=== PATIENT | male | born 1965 | race Caucasian/White ===

== ENCOUNTER 2018-12-24 11:58 | Inpatient (IN) | payer SELFPAY ==
[~2018-12-24] VITALS: Ht 190.5 cm; Wt 70.8 kg
--- NOTE | 2018-12-24 12:18 | PHYS DOC ---
Adult General Chief Complaint Chief Complaint: OTHER COMPLAINTS HPI HPI 53-year-old male presents with a 2 day history of difficulty swallowing. He states he can't drink any water without vomiting it back up. He states he is having some difficulty tolerating his secretions. He has some epigastric discomfort. He states in the past she's been told he had an esophageal stricture.[] Review of Systems Review of Systems Constitutional: Denies fever or chills [] Eyes: Denies change in visual acuity, redness, or eye pain [] HENT: Denies nasal congestion or sore throat [] Respiratory: Denies cough or shortness of breath [] Cardiovascular: No additional information not addressed in HPI [] GI: Per history of present illness[] : Denies dysuria or hematuria [] Musculoskeletal: Denies back pain or joint pain [] Integument: Denies rash or skin lesions [] Neurologic: Denies headache, focal weakness or sensory changes [] Endocrine: Denies polyuria or polydipsia [] All other systems were reviewed and found to be within normal limits, except as documented in this note. Current Medications Current Medications Current Medications Medications (Trade) Dose Ordered Sig/Olimpia Start Time Stop Time Status Last Admin Dose Admin Barium Sulfate (Liquid E-Z Paque) 355 ml 1X ONCE 12/24/18 13:15 12/24/18 13:16 DC 12/24/18 13:15 355 ML Metoclopramide HCl (Reglan Vial) 10 mg 1X ONCE 12/24/18 12:45 12/24/18 12:46 DC 12/24/18 12:44 10 MG Sodium Chloride 1,000 ml @ 1,000 mls/hr 1X ONCE 12/24/18 12:45 12/24/18 13:44 12/24/18 12:44 1,000 MLS/HR Allergies Allergies Allergies Coded Allergies Type Severity Reaction Last Updated Verified No Known Drug Allergies 12/24/18 No Physical Exam Physical Exam Constitutional: Well developed, well nourished, no acute distress, non-toxic appearance. [] HENT: Normocephalic, atraumatic, bilateral external ears normal, oropharynx moist, no oral exudates, nose normal. [] Eyes: PERRLA, EOMI, conjunctiva normal, no discharge. [] Neck: Normal range of motion, no tenderness, supple, no stridor. [] Cardiovascular:Heart rate regular rhythm, no murmur [] Lungs & Thorax: Bilateral breath sounds clear to auscultation [] Abdomen: Bowel sounds normal, soft, no tenderness, no masses, no pulsatile masses. [] Skin: Warm, dry, no erythema, no rash. [] Back: No tenderness, no CVA tenderness. [] Extremities: No tenderness, no cyanosis, no clubbing, ROM intact, no edema. [] Neurologic: Alert and oriented X 3, normal motor function, normal sensory function, no focal deficits noted. [] Psychologic: Affect normal, judgement normal, mood normal. [] Current Patient Data Vital Signs Vital Signs Date Time Temp Pulse Resp B/P (MAP) Pulse Ox O2 Delivery O2 Flow Rate FiO2 12/24/18 12:05 98.9 90 18 134/99 (111) 99 Room Air 98.9 Lab Values Laboratory Tests Test 12/24/18 12:20 White Blood Count 14.0 x10^3/uL (4.0-11.0) H Red Blood Count 5.23 x10^6/uL (4.30-5.70) Hemoglobin 14.1 g/dL (13.0-17.5) Hematocrit 43.9 % (39.0-53.0) Mean Corpuscular Volume 84 fL (79-100) Mean Corpuscular Hemoglobin 27 pg (25-35) Mean Corpuscular Hemoglobin Concent 32 g/dL (31-37) Red Cell Distribution Width 23.0 % (11.5-14.5) H Platelet Count 491 x10^3/uL (140-400) H Neutrophils (%) (Auto) 81 % (31-73) H Lymphocytes (%) (Auto) 11 % (24-48) L Monocytes (%) (Auto) 6 % (0-9) Eosinophils (%) (Auto) 0 % (0-3) Basophils (%) (Auto) 1 % (0-3) Neutrophils # (Auto) 11.3 x10^3uL (1.8-7.7) H Lymphocytes # (Auto) 1.6 x10^3/uL (1.0-4.8) Monocytes # (Auto) 0.9 x10^3/uL (0.0-1.1) Eosinophils # (Auto) 0.0 x10^3/uL (0.0-0.7) Basophils # (Auto) 0.2 x10^3/uL (0.0-0.2) Platelet Estimate Increased (ADEQUATE) Anisocytosis Slight Sodium Level 140 mmol/L (136-145) Potassium Level 3.7 mmol/L (3.5-5.1) Chloride Level 99 mmol/L (98-107) Carbon Dioxide Level 25 mmol/L (21-32) Anion Gap 16 (6-14) H Blood Urea Nitrogen 17 mg/dL (8-26) Creatinine 1.2 mg/dL (0.7-1.3) Estimated GFR (Cockcroft-Gault) 62.9 BUN/Creatinine Ratio 14 (6-20) Glucose Level 134 mg/dL (70-99) H Calcium Level 10.5 mg/dL (8.5-10.1) H Total Bilirubin 0.8 mg/dL (0.2-1.0) Aspartate Amino Transferase (AST) 19 U/L (15-37) Alanine Aminotransferase (ALT) 19 U/L (16-63) Alkaline Phosphatase 131 U/L (46-116) H Total Protein 9.3 g/dL (6.4-8.2) H Albumin 4.3 g/dL (3.4-5.0) Albumin/Globulin Ratio 0.9 (1.0-1.7) L Lipase 141 U/L (73-393) Laboratory Tests 12/24/18 12:20 Laboratory Tests 12/24/18 12:20 EKG EKG [] Radiology/Procedures Radiology/Procedures [] Impressions: PROCEDURE: ESOPHAGRAM/BARIUM SWALLOW Esophagram, 12/24/2018: History: Esophageal stricture, obstruction The study was performed utilizing thin liquid barium. 2.8 minutes of fluoroscopy time was utilized. 13 static and dynamic fluoroscopic sequences were recorded. There is high grade obstruction to passage of the thin liquid barium through the mid thoracic esophagus at approximately the subcarinal level. The esophagus superior to this level is dilated. There is only slow intermittent extension of a small amount of the contrast through this stricture into the distal esophagus. The upper margin of the stricture is smooth. The inferior margin is not clearly delineated due to lack of distention of the distal esophagus. A small amount contrast does eventually dribble into the stomach. IMPRESSION: High grade mid thoracic esophageal stricture which could be inflammatory or malignant. Course & Med Decision Making Course & Med Decision Making Pertinent Labs and Imaging studies reviewed. (See chart for details) [ED course: 53-year-old presented with difficulty swallowing. He had a barium swallow which showed a high-grade mid thoracic esophageal stricture consistent with either inflammation or malignancy. I spoke with the hospitalist agreed to accept the patient for admission and also spoke with the sheet metal mechanic will see him during his visit in the hospital.] Dragon Disclaimer Dragon Disclaimer This electronic medical record was generated, in whole or in part, using a voice recognition dictation system. Departure Departure Impression: Primary Impression: Esophageal stricture Disposition: ADMITTED INPATIENT Admitting Physician: Trisha Simmons Condition: STABLE Referrals: NO PCP (PCP) ZELALEM MORTENSEN DO Dec 24, 2018 12:18
[2018-12-24 12:45] LABS: BASO # 0.2 x10^3/uL (0.0-0.2); BASO % 1 % (0-3); EOS % 0 % (0-3); HEMATOCRIT 43.9 % (39.0-53.0); HEMOGLOBIN 14.1 g/dL (13.0-17.5); LYMPH # 1.6 x10^3/uL (1.0-4.8); LYMPH % 11 % (24-48); MEAN CORPUSCULAR HEMOGLOBIN 27 pg (25-35); MEAN CORPUSCULAR HGB CONC 32 g/dL (31-37); MEAN CORPUSCULAR VOLUME 84 fL (79-100); MONO # 0.9 x10^3/uL (0.0-1.1); MONO % 6 % (0-9); NEUT # 11.3 x10^3uL (1.8-7.7); NEUT % 81 % (31-73); PLATELET COUNT 491 x10^3/uL (140-400); RED BLOOD COUNT 5.23 x10^6/uL (4.30-5.70)
[2018-12-24] MEDS ORDERED: IV NORMAL SALINE 1000ML BAG 1,000 ML IV ONE (12:45)
[2018-12-24] MEDS ORDERED: METOCLOPRAMIDE HCL 10 MG/2 ML VIAL. IV ONE (12:45)
[2018-12-24 12:53] LABS: CALCIUM 10.5 mg/dL (8.5-10.1); CREATININE 1.2 mg/dL (0.7-1.3); GFR 62.9; POTASSIUM 3.7 mmol/L (3.5-5.1)
[2018-12-24 12:59] LABS: ALBUMIN 4.3 g/dL (3.4-5.0); ALBUMIN/GLOBULIN RATIO 0.9 (1.0-1.7); TOTAL BILIRUBIN 0.8 mg/dL (0.2-1.0); TOTAL PROTEIN 9.3 g/dL (6.4-8.2)
[2018-12-24 13:02] LABS: ANISOCYTOSIS SLIGHT; PLT ESTIMATE INCREASED (ADEQUATE)
[2018-12-24] MEDS ORDERED: BARIUM SULFATE 60% 355 ML SUSP PO ONE (13:15)
--- NOTE | 2018-12-24 13:31 | RAD ---
Esophagram, 12/24/2018: History: Esophageal stricture, obstruction The study was performed utilizing thin liquid barium. 2.8 minutes of fluoroscopy time was utilized. 13 static and dynamic fluoroscopic sequences were recorded. There is high grade obstruction to passage of the thin liquid barium through the mid thoracic esophagus at approximately the subcarinal level. The esophagus superior to this level is dilated. There is only slow intermittent extension of a small amount of the contrast through this stricture into the distal esophagus. The upper margin of the stricture is smooth. The inferior margin is not clearly delineated due to lack of distention of the distal esophagus. A small amount contrast does eventually dribble into the stomach. IMPRESSION: High grade mid thoracic esophageal stricture which could be inflammatory or malignant.
[2018-12-24] MEDS ORDERED: ONDANSETRON PF 4 MG/2 ML VIAL. IV PRN (13:45)
[2018-12-24] MEDS: IV NORMAL SALINE 1000ML BAG 1,000 ML IV SCH ×2 (14:00→21:02)
--- NOTE | 2018-12-24 14:03 | PDOC1 ---
History and Physical Date of Admission Date of Admission DATE: 12/24/18 TIME: 13:59 Identification/Chief Complaint Chief Complaint Cannot swallow pills, liquids Source Source: Caregiver, Chart review, Patient History of Present Illness History of Present Illness 53 white male, history of esophageal stricture and dilation dictation twice a year since 2010, last one November at [facility]. Monday onset of dysphagia and odynophagia again even difficulty swallowing pills and liquids. Barium swallow shows high-grade obstruction mid esophageal level hence admitted Takes carafate, SSRI, gabapentin, PPI, zoloft, seroquel at home but cant swallow pills He does not know of any diagnosis of esophageal cancer or mass causing his recurrent problems. HE claims he was told its bec of scar tissue Past Medical History GI: GERD, Other (esophageal strictures since 2010) Psych: Anxiety, Depression Past Surgical History Past Surgical History: Other (esophageal dilatations at least twice a year since 2010) Social History Smoke: No ALCOHOL: other (quit, was heavy before) Drugs: None Current Problem List Problem List Problems Medical Problems: (1) Esophageal stricture Status: Acute Current Medications Current Medications Current Medications Metoclopramide HCl (Reglan Vial) 10 mg 1X ONCE IV Last administered on at 12:44; Start 12/24/18 at 12:45; Stop 12/24/18 at 12:46; Status DC Sodium Chloride 1,000 ml @ 1,000 mls/hr 1X ONCE IV Last administered on at 12:44; Start 12/24/18 at 12:45; Stop 12/24/18 at 13:44; Status DC Barium Sulfate (Liquid E-Z Paque) 355 ml 1X ONCE PO Last administered on at 13:15; Start 12/24/18 at 13:15; Stop 12/24/18 at 13:16; Status DC Ondansetron HCl (Zofran) 4 mg PRN Q8HRS PRN IV NAUSEA/VOMITING; Start 12/24/18 at 13:45; Stop 12/25/18 at 13:44 Sodium Chloride 1,000 ml @ 125 mls/hr Q8H IV ; Start 12/24/18 at 14:00; Stop at 13:59 Allergies Allergies: Coded Allergies: No Known Drug Allergies (Unverified , 12/24/18) ROS Review of System odynophagia and dysphagia, otherwise no weight loss, he feels hungry, [id number] point negative Physical Exam General: Alert, Oriented X3, Cooperative, No acute distress HEENT: Atraumatic, PERRLA, EOMI Lungs: Clear to auscultation, Normal air movement Heart: S1S2, RRR, no thrills, no rubs, no gallops, no murmurs Cardiovascular: S1, S2 Abdomen: Normal bowel sounds, Soft, No tenderness, No hepatosplenomegaly, No masses Male Genitals Exam: normal genitalia, normal prostate Rectal Exam: not examined PELVIC: Nml ext genitalia Extremities: No clubbing, No cyanosis, No edema, Normal pulses, No tenderness/ swelling Skin: No rashes, No breakdown, No significant lesion Neuro: Normal gait, Normal speech, Strength at 5/5 X4 ext, Normal tone, Sensation intact, Cranial nerves 3-12 NL, Reflexes 2+ Psych/Mental Status: Mental status NL, Mood NL Vitals Vitals Vital Signs Date Time Temp Pulse Resp B/P (MAP) Pulse Ox O2 Delivery O2 Flow Rate FiO2 12/24/18 12:05 98.9 90 18 134/99 (111) 99 Room Air 98.9 Labs Labs Laboratory Tests Test 12/24/18 12:20 White Blood Count 14.0 x10^3/uL (4.0-11.0) Red Blood Count 5.23 x10^6/uL (4.30-5.70) Hemoglobin 14.1 g/dL (13.0-17.5) Hematocrit 43.9 % (39.0-53.0) Mean Corpuscular Volume 84 fL (79-100) Mean Corpuscular Hemoglobin 27 pg (25-35) Mean Corpuscular Hemoglobin Concent 32 g/dL (31-37) Red Cell Distribution Width 23.0 % (11.5-14.5) Platelet Count 491 x10^3/uL (140-400) Neutrophils (%) (Auto) 81 % (31-73) Lymphocytes (%) (Auto) 11 % (24-48) Monocytes (%) (Auto) 6 % (0-9) Eosinophils (%) (Auto) 0 % (0-3) Basophils (%) (Auto) 1 % (0-3) Neutrophils # (Auto) 11.3 x10^3uL (1.8-7.7) Lymphocytes # (Auto) 1.6 x10^3/uL (1.0-4.8) Monocytes # (Auto) 0.9 x10^3/uL (0.0-1.1) Eosinophils # (Auto) 0.0 x10^3/uL (0.0-0.7) Basophils # (Auto) 0.2 x10^3/uL (0.0-0.2) Platelet Estimate Increased (ADEQUATE) Anisocytosis Slight Sodium Level 140 mmol/L (136-145) Potassium Level 3.7 mmol/L (3.5-5.1) Chloride Level 99 mmol/L (98-107) Carbon Dioxide Level 25 mmol/L (21-32) Anion Gap 16 (6-14) Blood Urea Nitrogen 17 mg/dL (8-26) Creatinine 1.2 mg/dL (0.7-1.3) Estimated GFR (Cockcroft-Gault) 62.9 BUN/Creatinine Ratio 14 (6-20) Glucose Level 134 mg/dL (70-99) Calcium Level 10.5 mg/dL (8.5-10.1) Total Bilirubin 0.8 mg/dL (0.2-1.0) Aspartate Amino Transf (AST/SGOT) 19 U/L (15-37) Alanine Aminotransferase (ALT/SGPT) 19 U/L (16-63) Alkaline Phosphatase 131 U/L (46-116) Total Protein 9.3 g/dL (6.4-8.2) Albumin 4.3 g/dL (3.4-5.0) Albumin/Globulin Ratio 0.9 (1.0-1.7) Lipase 141 U/L (73-393) Laboratory Tests Test 12/24/18 12:20 White Blood Count 14.0 x10^3/uL (4.0-11.0) Red Blood Count 5.23 x10^6/uL (4.30-5.70) Hemoglobin 14.1 g/dL (13.0-17.5) Hematocrit 43.9 % (39.0-53.0) Mean Corpuscular Volume 84 fL (79-100) Mean Corpuscular Hemoglobin 27 pg (25-35) Mean Corpuscular Hemoglobin Concent 32 g/dL (31-37) Red Cell Distribution Width 23.0 % (11.5-14.5) Platelet Count 491 x10^3/uL (140-400) Neutrophils (%) (Auto) 81 % (31-73) Lymphocytes (%) (Auto) 11 % (24-48) Monocytes (%) (Auto) 6 % (0-9) Eosinophils (%) (Auto) 0 % (0-3) Basophils (%) (Auto) 1 % (0-3) Neutrophils # (Auto) 11.3 x10^3uL (1.8-7.7) Lymphocytes # (Auto) 1.6 x10^3/uL (1.0-4.8) Monocytes # (Auto) 0.9 x10^3/uL (0.0-1.1) Eosinophils # (Auto) 0.0 x10^3/uL (0.0-0.7) Basophils # (Auto) 0.2 x10^3/uL (0.0-0.2) Platelet Estimate Increased (ADEQUATE) Anisocytosis Slight Sodium Level 140 mmol/L (136-145) Potassium Level 3.7 mmol/L (3.5-5.1) Chloride Level 99 mmol/L (98-107) Carbon Dioxide Level 25 mmol/L (21-32) Anion Gap 16 (6-14) Blood Urea Nitrogen 17 mg/dL (8-26) Creatinine 1.2 mg/dL (0.7-1.3) Estimated GFR (Cockcroft-Gault) 62.9 BUN/Creatinine Ratio 14 (6-20) Glucose Level 134 mg/dL (70-99) Calcium Level 10.5 mg/dL (8.5-10.1) Total Bilirubin 0.8 mg/dL (0.2-1.0) Aspartate Amino Transf (AST/SGOT) 19 U/L (15-37) Alanine Aminotransferase (ALT/SGPT) 19 U/L (16-63) Alkaline Phosphatase 131 U/L (46-116) Total Protein 9.3 g/dL (6.4-8.2) Albumin 4.3 g/dL (3.4-5.0) Albumin/Globulin Ratio 0.9 (1.0-1.7) Lipase 141 U/L (73-393) VTE Prophylaxis Ordered VTE Prophylaxis Devices: Yes VTE Pharmacological Prophylaxi: Yes Assessment/Plan Assessment/Plan High-grade mid-level esophageal stricture NO known malignancy causing recurrent strictures Depression on SSRI and antidepressants Plan: OBS nothing by mouth, IV fluid, PPI while nothing by mouth Cannot reconcile home meds are OTC is unable to swallow GI consult Seen at ER Full code Possible home after diltn by gI tmr CAROLINA CHUN MD Dec 24, 2018 14:03
[2018-12-24] MEDS ORDERED: PANTOPRAZOLE IV PUSH 40 MG VIAL. IVP SCH (14:30)
[2018-12-24 15:11] VITALS: BP 123/90
--- NOTE | 2018-12-24 15:15 | PDOC2 ---
GI CONSULT Reason For Consult: Esophageal stricture HPI: HPI: 53 y/o male admitted through the ER, seen in his room w/ Dr. Romero this afternoon. H/o dysphagia requiring esophageal dilations - last done about 1.5 months ago at [facility]. 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 On this occasion, bothersome dysphagia and vomiting since Monday (12/22/18). Abd is sore from retching. Unable to tolerate much PO - prior to this episode diet consisted mainly of Ensure and blended foods. Has lost 10 pounds in the past couple months. Barium swallow in the ER showed high grade mid thoracic esophageal stricture. No hematemesis, diarrhea, constipation, hematochezia, or melena. Last colonoscopy sometime last year - reportedly normal though it has been recommended that he have colonoscopies every three years due to family history. PMH: PMH: A Fib (says "once in the hospital), esophageal stricture/dilations, anxiety/ depression FH: Family History: Cancer (father - colon cancer, diagnosed in his 50s; mother and sister also had cancer) Social History: Smoke: Quit ALCOHOL: other (heavy in the past - up to 1/5 vodka daily, none since last year ) Drugs: Marijuana (long ago) ROS: GEN: Denies fevers, chills, sweats HEENT: Denies blurred vision, sore throat CV: Denies chest pain RESP: Denies shortness of air, cough GI: Per HPI : Denies hematuria, dysuria ENDO: +weight loss NEURO: Denies confusion, dizziness MSK: Denies weakness, joint pain/swelling SKIN: Denies jaundice, pruritus Vitals: Vitals: Vital Signs Date Time Temp Pulse Resp B/P (MAP) Pulse Ox O2 Delivery O2 Flow Rate FiO2 12/24/18 14:30 88 19 128/97 (107) 97 Room Air 12/24/18 12:05 98.9 98.9 Labs: Labs: Laboratory Tests Test 12/24/18 12:20 White Blood Count 14.0 x10^3/uL (4.0-11.0) Red Blood Count 5.23 x10^6/uL (4.30-5.70) Hemoglobin 14.1 g/dL (13.0-17.5) Hematocrit 43.9 % (39.0-53.0) Mean Corpuscular Volume 84 fL (79-100) Mean Corpuscular Hemoglobin 27 pg (25-35) Mean Corpuscular Hemoglobin Concent 32 g/dL (31-37) Red Cell Distribution Width 23.0 % (11.5-14.5) Platelet Count 491 x10^3/uL (140-400) Neutrophils (%) (Auto) 81 % (31-73) Lymphocytes (%) (Auto) 11 % (24-48) Monocytes (%) (Auto) 6 % (0-9) Eosinophils (%) (Auto) 0 % (0-3) Basophils (%) (Auto) 1 % (0-3) Neutrophils # (Auto) 11.3 x10^3uL (1.8-7.7) Lymphocytes # (Auto) 1.6 x10^3/uL (1.0-4.8) Monocytes # (Auto) 0.9 x10^3/uL (0.0-1.1) Eosinophils # (Auto) 0.0 x10^3/uL (0.0-0.7) Basophils # (Auto) 0.2 x10^3/uL (0.0-0.2) Platelet Estimate Increased (ADEQUATE) Anisocytosis Slight Sodium Level 140 mmol/L (136-145) Potassium Level 3.7 mmol/L (3.5-5.1) Chloride Level 99 mmol/L (98-107) Carbon Dioxide Level 25 mmol/L (21-32) Anion Gap 16 (6-14) Blood Urea Nitrogen 17 mg/dL (8-26) Creatinine 1.2 mg/dL (0.7-1.3) Estimated GFR (Cockcroft-Gault) 62.9 BUN/Creatinine Ratio 14 (6-20) Glucose Level 134 mg/dL (70-99) Calcium Level 10.5 mg/dL (8.5-10.1) Total Bilirubin 0.8 mg/dL (0.2-1.0) Aspartate Amino Transf (AST/SGOT) 19 U/L (15-37) Alanine Aminotransferase (ALT/SGPT) 19 U/L (16-63) Alkaline Phosphatase 131 U/L (46-116) Total Protein 9.3 g/dL (6.4-8.2) Albumin 4.3 g/dL (3.4-5.0) Albumin/Globulin Ratio 0.9 (1.0-1.7) Lipase 141 U/L (73-393) Allergies: Coded Allergies: No Known Drug Allergies (Unverified , 12/24/18) Medications: Current Medications Medications (Trade) Dose Ordered Sig/Olimpia Route PRN Reason Start Time Stop Time Status Last Admin Dose Admin Metoclopramide HCl (Reglan Vial) 10 mg 1X ONCE IV 12/24/18 12:45 12/24/18 12:46 DC 12/24/18 12:44 Sodium Chloride 1,000 ml @ 1,000 mls/hr 1X ONCE IV 12/24/18 12:45 12/24/18 13:44 DC 12/24/18 12:44 Barium Sulfate (Liquid E-Z Paque) 355 ml 1X ONCE PO 12/24/18 13:15 12/24/18 13:16 DC 12/24/18 13:15 Imaging: Imaging: Barium swallow IMPRESSION: High grade mid thoracic esophageal stricture which could be inflammatory or malignant. PE: GEN: NAD HEENT: Atraumatic, PERRL LUNGS: CTAB HEART: RRR ABD: NABS, S/ND/NT EXTREMITY: No edema SKIN: No rashes, no jaundice NEURO/PSYCH: A & O 3 A/P: A/P: Esophageal stricture, dysphagia, weight loss H/o GERD and Morales's - on PPI and Carafate CRC screen, FH CRC - UTD H/o tobacco and alcohol abuse - quit -- Agree w/ IV PPI - will increase to BID. Will ask for records from [facility] re: last EGD/dilation. Plan for EGD and possible dilation w/ Dr. Romero tomorrow morning. LOUISE BERNARD Dec 24, 2018 15:15
[2018-12-24] MEDS ORDERED: QUEtiapine 25 MG TABLET. PO PRN (15:45)
[2018-12-24] MEDS ORDERED: ACETAMINOPHEN 325 MG TABLET. PO PRN (15:45)
[2018-12-24] MEDS: ONDANSETRON PF 4 MG/2 ML VIAL. IV PRN (16:07)
[2018-12-24] MEDS: MORPHINE SULFATE 2 MG/ML VIAL. IV PRN ×3 (16:10→21:00)
[2018-12-24] MEDS ORDERED: PANTOPRAZOLE 40 MG TABLET.DR. PO SCH (16:30)
[2018-12-24] MEDS: SERTRALINE 50 MG TABLET. PO SCH (16:30)
[2018-12-24] MEDS: PANTOPRAZOLE IV PUSH 40 MG VIAL. IVP SCH (17:44)
[2018-12-24 19:48] VITALS: BP 128/82
[2018-12-24] MEDS: GABAPENTIN 100 MG CAPSULE. PO SCH (21:05)
[2018-12-24] MEDS: SUCRALFATE 1 GM TABLET. PO SCH (21:05)
[2018-12-24] MEDS: QUEtiapine 100 MG TABLET. PO SCH (21:05)
[2018-12-24 22:47] VITALS: BP 122/75
[2018-12-25 02:43] VITALS: BP 109/79
[2018-12-25] MEDS: IV NORMAL SALINE 1000ML BAG 1,000 ML IV SCH (06:16)
[2018-12-25] MEDS: ONDANSETRON PF 4 MG/2 ML VIAL. IV PRN ×2 (06:17→15:07)
[2018-12-25] MEDS: MORPHINE SULFATE 2 MG/ML VIAL. IV PRN ×5 (06:18→21:43)
[2018-12-25 07:09] VITALS: BP 125/76
[2018-12-25] MEDS: SUCRALFATE 1 GM TABLET. PO SCH ×4 (07:30→19:39)
[2018-12-25] MEDS: IV RINGERS,LACTATED 1000ML 1,000 ML IV SCH ×2 (07:36→15:36)
[2018-12-25] MEDS ORDERED: fentaNYL PF VIAL 100 MCG/2 ML VIAL IV PRN ×2 (07:45)
[2018-12-25] MEDS ORDERED: MIDAZOLAM HCL/PF 2 MG/2 ML VIAL. IV PRN (07:45)
[2018-12-25] MEDS ORDERED: LIDOCAINE 1% PF 2 ML VIAL. ID PRN (07:45)
[2018-12-25] MEDS: PANTOPRAZOLE IV PUSH 40 MG VIAL. IVP SCH ×2 (07:55→16:12)
--- NOTE | 2018-12-25 08:42 | NUR ---
SW following pt for anticipated dc needs. Chart reviewed. Pt lives at home alone. Dc order placed on chart for home with self care if pt tolerates diet.
[2018-12-25] MEDS: SERTRALINE 50 MG TABLET. PO SCH (09:00)
[2018-12-25] MEDS: GABAPENTIN 100 MG CAPSULE. PO SCH ×3 (09:00→19:39)
--- NOTE | 2018-12-25 09:15 | PDOC3 ---
Discharge Summary Visit Information Date of Admission: Dec 24, 2018 Date of Discharge: Dec 25, 2018 Admitting Diagnosis Comment: High-grade mid-level esophageal stricture NO known malignancy causing recurrent strictures RECurrent benign esophageal stricture Depression on SSRI and antidepressants Final Diagnosis Problems Medical Problems: (1) Esophageal stricture Status: Acute Brief Hospital Course Allergies Allergies Coded Allergies Type Severity Reaction Last Updated Verified No Known Drug Allergies 12/24/18 No Vital Signs Vital Signs Date Time Temp Pulse Resp B/P (MAP) Pulse Ox O2 Delivery O2 Flow Rate FiO2 12/25/18 08:00 Room Air 12/25/18 07:09 98.0 75 17 125/76 (92) 96 98.0 Lab Results Laboratory Tests Test 12/24/18 12:20 White Blood Count 14.0 x10^3/uL (4.0-11.0) Red Blood Count 5.23 x10^6/uL (4.30-5.70) Hemoglobin 14.1 g/dL (13.0-17.5) Hematocrit 43.9 % (39.0-53.0) Mean Corpuscular Volume 84 fL (79-100) Mean Corpuscular Hemoglobin 27 pg (25-35) Mean Corpuscular Hemoglobin Concent 32 g/dL (31-37) Red Cell Distribution Width 23.0 % (11.5-14.5) Platelet Count 491 x10^3/uL (140-400) Neutrophils (%) (Auto) 81 % (31-73) Lymphocytes (%) (Auto) 11 % (24-48) Monocytes (%) (Auto) 6 % (0-9) Eosinophils (%) (Auto) 0 % (0-3) Basophils (%) (Auto) 1 % (0-3) Neutrophils # (Auto) 11.3 x10^3uL (1.8-7.7) Lymphocytes # (Auto) 1.6 x10^3/uL (1.0-4.8) Monocytes # (Auto) 0.9 x10^3/uL (0.0-1.1) Eosinophils # (Auto) 0.0 x10^3/uL (0.0-0.7) Basophils # (Auto) 0.2 x10^3/uL (0.0-0.2) Platelet Estimate Increased (ADEQUATE) Anisocytosis Slight Sodium Level 140 mmol/L (136-145) Potassium Level 3.7 mmol/L (3.5-5.1) Chloride Level 99 mmol/L (98-107) Carbon Dioxide Level 25 mmol/L (21-32) Anion Gap 16 (6-14) Blood Urea Nitrogen 17 mg/dL (8-26) Creatinine 1.2 mg/dL (0.7-1.3) Estimated GFR (Cockcroft-Gault) 62.9 BUN/Creatinine Ratio 14 (6-20) Glucose Level 134 mg/dL (70-99) Calcium Level 10.5 mg/dL (8.5-10.1) Total Bilirubin 0.8 mg/dL (0.2-1.0) Aspartate Amino Transf (AST/SGOT) 19 U/L (15-37) Alanine Aminotransferase (ALT/SGPT) 19 U/L (16-63) Alkaline Phosphatase 131 U/L (46-116) Total Protein 9.3 g/dL (6.4-8.2) Albumin 4.3 g/dL (3.4-5.0) Albumin/Globulin Ratio 0.9 (1.0-1.7) Lipase 141 U/L (73-393) Laboratory Tests Test 12/24/18 12:20 White Blood Count 14.0 x10^3/uL (4.0-11.0) Red Blood Count 5.23 x10^6/uL (4.30-5.70) Hemoglobin 14.1 g/dL (13.0-17.5) Hematocrit 43.9 % (39.0-53.0) Mean Corpuscular Volume 84 fL (79-100) Mean Corpuscular Hemoglobin 27 pg (25-35) Mean Corpuscular Hemoglobin Concent 32 g/dL (31-37) Red Cell Distribution Width 23.0 % (11.5-14.5) Platelet Count 491 x10^3/uL (140-400) Neutrophils (%) (Auto) 81 % (31-73) Lymphocytes (%) (Auto) 11 % (24-48) Monocytes (%) (Auto) 6 % (0-9) Eosinophils (%) (Auto) 0 % (0-3) Basophils (%) (Auto) 1 % (0-3) Neutrophils # (Auto) 11.3 x10^3uL (1.8-7.7) Lymphocytes # (Auto) 1.6 x10^3/uL (1.0-4.8) Monocytes # (Auto) 0.9 x10^3/uL (0.0-1.1) Eosinophils # (Auto) 0.0 x10^3/uL (0.0-0.7) Basophils # (Auto) 0.2 x10^3/uL (0.0-0.2) Platelet Estimate Increased (ADEQUATE) Anisocytosis Slight Sodium Level 140 mmol/L (136-145) Potassium Level 3.7 mmol/L (3.5-5.1) Chloride Level 99 mmol/L (98-107) Carbon Dioxide Level 25 mmol/L (21-32) Anion Gap 16 (6-14) Blood Urea Nitrogen 17 mg/dL (8-26) Creatinine 1.2 mg/dL (0.7-1.3) Estimated GFR (Cockcroft-Gault) 62.9 BUN/Creatinine Ratio 14 (6-20) Glucose Level 134 mg/dL (70-99) Calcium Level 10.5 mg/dL (8.5-10.1) Total Bilirubin 0.8 mg/dL (0.2-1.0) Aspartate Amino Transf (AST/SGOT) 19 U/L (15-37) Alanine Aminotransferase (ALT/SGPT) 19 U/L (16-63) Alkaline Phosphatase 131 U/L (46-116) Total Protein 9.3 g/dL (6.4-8.2) Albumin 4.3 g/dL (3.4-5.0) Albumin/Globulin Ratio 0.9 (1.0-1.7) Lipase 141 U/L (73-393) Brief Hospital Course Mr. Diaz is a 53 old white male with history of benign esophageal stricture since 2010 and has had multiple dilatations about 2 in a year. Comes in because of mid level high-grade stricture. Plan for EGD later. If tolerates diet after EGD can go home later Consults performed GI Procedure is performed EGD with dilatation 12/25/18 Discharge Information Condition at Discharge: Improved, Stable Disposition/Orders: D/C to Home CAROLINA CHUN MD Dec 25, 2018 09:15
[2018-12-25] MEDS ORDERED: PROPOFOL 40 ML IV ONE (09:52)
[2018-12-25] MEDS ORDERED: LIDOCAINE 2% PF 5 ML VIAL. ONE (09:52)
--- NOTE | 2018-12-25 14:11 | NUR ---
Patient underwent EGD this morning and was back at the unit at 1150. Patient was put on clear liquids. He'll be discharged once he tolerates the diet.
[2018-12-25 14:31] VITALS: BP 130/78
--- NOTE | 2018-12-25 16:22 | NUR ---
Patient was unable to tolerate clear liquids, vomited about 30 mL of ingested fluids. Paged GI service at 1530 and updated of the patient's condition. This nurse also spoke with Dr. Simmons at 1600 about patient's status and discharge plan, was instructed to cancel discharge and continue IV fluids. Patient may go home tomorrow and ff up at for planned stent placement for the esophageal stricture.
--- NOTE | 2018-12-25 16:27 | NUR ---
Spoke with Grace Britton of GI service at 1625, planning to coordinate with the endoscopist at for patient to be evaluated as outpx upon discharge from [facility]. Nurse to continue to follow.
[2018-12-25] MEDS: QUEtiapine 100 MG TABLET. PO SCH (19:39)
[2018-12-25 19:52] VITALS: BP 125/75
[2018-12-25 23:39] VITALS: BP 128/73
[2018-12-26 03:32] VITALS: BP 123/71
[2018-12-26] MEDS: MORPHINE SULFATE 2 MG/ML VIAL. IV PRN ×6 (04:19→22:29)
[2018-12-26 07:00] VITALS: BP 125/74
[2018-12-26] MEDS: SUCRALFATE 1 GM TABLET. PO SCH ×3 (07:30→16:30)
[2018-12-26] MEDS: ONDANSETRON PF 4 MG/2 ML VIAL. IV PRN ×2 (08:31→19:12)
[2018-12-26] MEDS: PANTOPRAZOLE IV PUSH 40 MG VIAL. IVP SCH ×2 (08:33→16:27)
[2018-12-26] MEDS: IV NORMAL SALINE 1000ML BAG 1,000 ML IV SCH ×2 (08:33→16:26)
[2018-12-26] MEDS: SERTRALINE 50 MG TABLET. PO SCH (09:00)
[2018-12-26] MEDS: GABAPENTIN 100 MG CAPSULE. PO SCH ×2 (09:00→14:00)
--- NOTE | 2018-12-26 09:36 | PDOC ---
Subjective: Subjective: Unable to swallow clear liquids. Objective: Vital Signs: Vital Signs Date Time Temp Pulse Resp B/P (MAP) Pulse Ox O2 Delivery O2 Flow Rate FiO2 12/26/18 08:32 19 100 Room Air 12/26/18 07:00 98.0 71 125/74 (91) 98.0 12/25/18 10:23 2 Imaging: EGD 12/25 one severe high grade stenosis 30cm from incisors (3-4mm inner diameter) - not traversed esophagus proximal to stenotic area was dilated (and biopsied) ectopic gastric mucosa in upper this of the esophagus (biopsied) *Dr. Romero d/w Dr. Madison yesterday re: possible esophageal stent placement PE: GEN: NAD LUNGS: CTAB HEART: RRR ABD: S/ND/NT NEURO/PSYCH: A & O 3 A/P: Esophageal stenosis -- Continue IVF. Our office is working to coordinate appt w/ Dr. Madison - will update with any new information - ?could possibly discharge from here and go directly to [facility] Dec 26, 2018 09:36
--- NOTE | 2018-12-26 10:54 | PDOC ---
PROGRESS NOTES Chief Complaint Chief Complaint High-grade mid-level esophageal stricture failed trial of esophageal dilation dictation 12/25/18 NO known malignancy causing recurrent strictures RECurrent benign esophageal stricture Depression on SSRI and antidepressants History of Present Illness History of Present Illness GI was unfortunately unsuccessful in dilating Mr. chambers: We are [facility] to [facility] JORDAN (might need stent?) I have talked to triage nurse and she will get back to me Pt is aware of my plan and is agreeable to transfer He cannot swallow liquids, pills Vitals Vitals Vital Signs Date Time Temp Pulse Resp B/P (MAP) Pulse Ox O2 Delivery O2 Flow Rate FiO2 12/26/18 08:32 19 100 Room Air 12/26/18 07:00 98.0 71 125/74 (91) 98.0 12/25/18 10:23 2 Physical Exam General: Alert, Oriented X3, Cooperative, No acute distress Heart: Regular rate Lungs: Clear Abdomen: Normal bowel sounds, Soft, No tenderness, No hepatosplenomegaly, No masses Extremities: No clubbing, No cyanosis, No edema, Normal pulses, No tenderness/ swelling Skin: No rashes, No breakdown, No significant lesion Review of Systems Review of Systems dysphagia and odynophagia, the rest of ROS 14 point negative Assessment and Plan Assessmemt and Plan Problems Medical Problems: (1) Esophageal stricture Status: Acute Comment Review of Relevant I have reviewed the following items rell (where applicable) has been applied. Labs Laboratory Tests Test 12/24/18 12:20 White Blood Count 14.0 x10^3/uL (4.0-11.0) Red Blood Count 5.23 x10^6/uL (4.30-5.70) Hemoglobin 14.1 g/dL (13.0-17.5) Hematocrit 43.9 % (39.0-53.0) Mean Corpuscular Volume 84 fL (79-100) Mean Corpuscular Hemoglobin 27 pg (25-35) Mean Corpuscular Hemoglobin Concent 32 g/dL (31-37) Red Cell Distribution Width 23.0 % (11.5-14.5) Platelet Count 491 x10^3/uL (140-400) Neutrophils (%) (Auto) 81 % (31-73) Lymphocytes (%) (Auto) 11 % (24-48) Monocytes (%) (Auto) 6 % (0-9) Eosinophils (%) (Auto) 0 % (0-3) Basophils (%) (Auto) 1 % (0-3) Neutrophils # (Auto) 11.3 x10^3uL (1.8-7.7) Lymphocytes # (Auto) 1.6 x10^3/uL (1.0-4.8) Monocytes # (Auto) 0.9 x10^3/uL (0.0-1.1) Eosinophils # (Auto) 0.0 x10^3/uL (0.0-0.7) Basophils # (Auto) 0.2 x10^3/uL (0.0-0.2) Platelet Estimate Increased (ADEQUATE) Anisocytosis Slight Sodium Level 140 mmol/L (136-145) Potassium Level 3.7 mmol/L (3.5-5.1) Chloride Level 99 mmol/L (98-107) Carbon Dioxide Level 25 mmol/L (21-32) Anion Gap 16 (6-14) Blood Urea Nitrogen 17 mg/dL (8-26) Creatinine 1.2 mg/dL (0.7-1.3) Estimated GFR (Cockcroft-Gault) 62.9 BUN/Creatinine Ratio 14 (6-20) Glucose Level 134 mg/dL (70-99) Calcium Level 10.5 mg/dL (8.5-10.1) Total Bilirubin 0.8 mg/dL (0.2-1.0) Aspartate Amino Transf (AST/SGOT) 19 U/L (15-37) Alanine Aminotransferase (ALT/SGPT) 19 U/L (16-63) Alkaline Phosphatase 131 U/L (46-116) Total Protein 9.3 g/dL (6.4-8.2) Albumin 4.3 g/dL (3.4-5.0) Albumin/Globulin Ratio 0.9 (1.0-1.7) Lipase 141 U/L (73-393) Medications Current Medications Metoclopramide HCl (Reglan Vial) 10 mg 1X ONCE IV Last administered on at 12:44; Start 12/24/18 at 12:45; Stop 12/24/18 at 12:46; Status DC Sodium Chloride 1,000 ml @ 1,000 mls/hr 1X ONCE IV Last administered on at 12:44; Start 12/24/18 at 12:45; Stop 12/24/18 at 13:44; Status DC Barium Sulfate (Liquid E-Z Paque) 355 ml 1X ONCE PO Last administered on at 13:15; Start 12/24/18 at 13:15; Stop 12/24/18 at 13:16; Status DC Ondansetron HCl (Zofran) 4 mg PRN Q8HRS PRN IV NAUSEA/VOMITING; Start 12/24/18 at 13:45; Stop 12/24/18 at 13:59; Status DC Sodium Chloride 1,000 ml @ 125 mls/hr Q8H IV Last administered on 12/25/18at 06 :16; Start 12/24/18 at 14:00; Stop 12/25/18 at 13:59; Status DC Ondansetron HCl (Zofran) 4 mg PRN Q6HRS PRN IV NAUSEA/VOMITING Last administered on 12/26/18at 08:31; Start 12/24/18 at 14:00 Morphine Sulfate (Morphine Sulfate) 2 mg PRN Q2HR PRN IV PAIN Last administered on 12/26/18at 08:32; Start 12/24/18 at 14:00 Pantoprazole Sodium (PROTONIX VIAL for IV PUSH) 40 mg DAILYAC IVP ; Start at 14:30; Stop 12/24/18 at 15:15; Status DC Pantoprazole Sodium (PROTONIX VIAL for IV PUSH) 40 mg BIDAC IVP Last administered on 12/26/18at 08:33; Start 12/24/18 at 16:30 Sertraline HCl (Zoloft) 150 mg DAILY PO ; Start 12/24/18 at 16:30 Sucralfate (Carafate) 1 gm QIDACHS PO ; Start 12/24/18 at 21:00 Pantoprazole Sodium (Protonix) 40 mg BIDAC PO ; Start 12/24/18 at 16:30; Status UNV Gabapentin (Neurontin) 600 mg TID PO ; Start 12/24/18 at 21:00 Quetiapine Fumarate (SEROquel) 150 mg HS PO ; Start 12/24/18 at 21:00 Quetiapine Fumarate (SEROquel) 25 mg PRN DAILY PRN PO ANXIETY / AGITATION; Start 12/24/18 at 15:45 Acetaminophen (Tylenol) 650 mg PRN Q6HRS PRN PO PAIN; Start 12/24/18 at 15:45 Midazolam HCl (Versed) 2 mg PRN 1X PRN IV PRIOR TO PROCEDURE; Start 12/25/18 at 07:45; Stop 12/26/18 at 07:44; Status DC Fentanyl Citrate (Fentanyl 2ml Vial) 25 mcg PRN Q5MIN PRN IV X 2 DOSES FOR PAIN ; Start 12/25/18 at 07:45; Stop 12/26/18 at 07:44; Status DC Fentanyl Citrate (Fentanyl 2ml Vial) 50 mcg PRN Q5MIN PRN IV X 2 DOSES FOR PAIN ; Start 12/25/18 at 07:45; Stop 12/26/18 at 07:44; Status DC Ringer's Solution 1,000 ml @ 125 mls/hr Q8H IV ; Start 12/25/18 at 07:36; Stop 12/25/18 at 19:35; Status DC Lidocaine HCl (Xylocaine-Mpf 1% 2ml Vial) 2 ml 1X PRN PRN ID IV START; Start at 07:45; Stop 12/26/18 at 07:44; Status DC Propofol 40 ml @ As Directed STK-MED ONCE IV ; Start 12/25/18 at 09:52; Stop at 09:53; Status DC Lidocaine HCl (Lidocaine Pf 2% Vial) 5 ml STK-MED ONCE .ROUTE ; Start 12/25/18 at 09:52; Stop 12/25/18 at 09:53; Status DC Sodium Chloride 1,000 ml @ 125 mls/hr Q8H IV Last administered on 12/26/18at 08 :33; Start 12/26/18 at 07:15 Vitals/I & O Vital Sign - Last 24 Hours 12/25/18 12/25/18 12/25/18 12/25/18 10:52 11:58 14:31 15:09 Temp 98.1 98.1 Pulse 91 85 Resp 18 19 16 18 B/P (MAP) 131/80 130/78 (95) Pulse Ox 98 98 100 100 O2 Delivery Room Air Room Air Room Air Room Air 12/25/18 12/25/18 12/25/18 12/25/18 18:18 18:50 19:52 20:00 Temp 98.0 98.0 Pulse 66 Resp B/P (MAP) 125/75 (92) Pulse Ox 100 100 98 O2 Delivery Room Air Room Air Room Air Room Air 12/25/18 12/26/18 12/26/18 12/26/18 23:39 03:32 07:00 08:00 Temp 97.9 98.1 98.0 97.9 98.1 98.0 Pulse 72 64 71 Resp B/P (MAP) 128/73 (91) 123/71 (88) 125/74 (91) Pulse Ox 96 97 100 O2 Delivery Room Air Room Air Room Air Room Air 12/26/18 08:32 Resp 19 Pulse Ox 100 O2 Delivery Room Air Intake and Output 12/25/18 12/25/18 12/26/18 15:00 23:00 07:00 Intake Total 1000 ml 440 ml 50 ml Output Total 200 ml 30 ml 900 ml Balance 800 ml 410 ml -850 ml CAROLINA CHUN MD Dec 26, 2018 10:54
--- NOTE | 2018-12-26 11:18 | NUR ---
PARIS following pt. PARIS notified by Physician a [facility] transfer request has been made. PARIS spoke with manager physical at as well and faxed clinicals. Acceptance and admission pending. Will continue to follow.
[2018-12-26 11:41] LABS: HEMATOCRIT 35.9 % (39.0-53.0); HEMOGLOBIN 11.9 g/dL (13.0-17.5); RED BLOOD COUNT 4.25 x10^6/uL (4.30-5.70); RED CELL DISTRIBUTION WIDTH 21.9 % (11.5-14.5); WHITE BLOOD COUNT 5.9 x10^3/uL (4.0-11.0)
[2018-12-26 12:11] LABS: CALCIUM 8.7 mg/dL (8.5-10.1); CREATININE 0.7 mg/dL (0.7-1.3); GFR 117.1; POTASSIUM 3.6 mmol/L (3.5-5.1)
--- NOTE | 2018-12-26 14:08 | NUR ---
PARIS following pt. PARIS notified by Sarah, it application architect at that pt needs to speak with financial counselor regarding payment plan before they accept. She also reported 's GI team currently are not taking consults and Internal Medicine is at capacity. PARIS assisted pt in calling a healthcare financial analyst and they completed a financial screen. Pt also reports he has filed Medicaid and disability few weeks ago with [employer]. Spoke with Sarha again and she reported she will reach out to financial counselors to see if decisions have been made yet and notify SW. PARIS will continue to follow.
[2018-12-26 15:00] VITALS: BP 135/76
--- NOTE | 2018-12-26 15:52 | NUR ---
PARIS following pt. PARIS received a phone call from Sarah, maintenance painter at who reported she is notified by financial counselor that pt will need to make a $200,000 down payment before they accept. She is also reported they are not accepting pt as it is not a medical emergency. PARIS discussed that Dr. Romero has spoken with Dr. Licona who is willing to accept pt but Sarah reported 'Dr. Licona is a search engine optimization consultant doctor and is not able to accept pt'. She reported 'he is able to say he can do procedure but can not admit pt'. PARIS notified Sarah pt is not able to make that kind of payment. At this time, is declining to accept pt stating clinicals provided do not show a medical emergency and also due to financial reasons. Physician notified.
--- NOTE | 2018-12-26 15:57 | NUR ---
Patient had 1 episode of vomiting this morning. Patient unable tolerate liquids. He was placed on NPO. We'll continue to monitor patient.
--- NOTE | 2018-12-26 17:09 | PATHOLOGY ---
[facility] Accession Number: [id number] . 01 Material submitted: . PART A: HIGH GRADE STENOSIS BIOPSY ESOPHAGEAL PART B: ESOPHAGUS BIOPSY - SALMON COLORED MUCOSA . 01 Clinical history: . Esophageal stricture . 02 Diagnosis: A. Esophageal biopsy, high grade stenosis: - Segments of hyperplastic squamous esophageal mucosa, consistent with reflux esophagitis. . B. 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 . ([facility] 12/26/2018) [facility]/12/26/2018 . 02 Comment: Sections of the esophageal biopsy from an area of high-grade stenosis reveal segments of tangentially orientated hyperplastic squamous esophageal mucosa. There is a rare intraepithelial eosinophil. The findings are consistent with reflux esophagitis. There is no evidence of Morales's change, dysplasia, or malignancy. . Sections of the esophageal biopsy proximal to the area of stenosis reveal a segment of gastric mucosa consistent with heterotopic gastric mucosa, showing mild acute and chronic inflammation. There is no evidence of Morales's change, dysplasia, or malignancy. ([facility]PM:[facility] 12/26/2018) . 02 Electronically signed: . Gibran Tian MD, Pathologist NPI- [id number] . 01 Gross description: . A. Received in formalin labeled "Brandon Diaz esophageal BX, high-grade stenosis," are 3 segments of fonseca soft tissue measuring 0.9 x 0.5 x 0.2 cm in aggregate dimensions and ranging from 0.1 to 0.4 cm in maximum dimension. The specimen is submitted entirely in cassette A1. . B. Received in formalin labeled "Brandon Diaz, esophagus BX, salmon colored mucosa," is a single segment of fonseca soft tissue measuring 0.5 cm in maximum dimension. The specimen is entirely submitted in cassette B1. ([facility]; 12/25/2018) TOB/TOB . 02 Pathologist provided ICD-10: K21.0, K20.8 . 02 CPT . 025727, 747115 Specimen Comment: A courtesy copy of this report has been sent to Specimen Comment: [phone]. Specimen Comment: Report sent to ,DR CHUN / DR MORTENSEN Performed at: [address], [place] [id number] MD Elbert Garcia MD Phone: [phone] Performed at: 02 [facility] [address] [place] [id number] MD Gibran Tian MD Phone: [phone]
[2018-12-26 19:40] VITALS: BP 127/77
[2018-12-26 23:47] VITALS: BP 142/78
[2018-12-27] MEDS: IV NORMAL SALINE 1000ML BAG 1,000 ML IV SCH ×2 (00:44→10:51)
[2018-12-27 03:58] VITALS: BP 116/68
[2018-12-27] MEDS: ONDANSETRON PF 4 MG/2 ML VIAL. IV PRN (04:32)
[2018-12-27] MEDS: MORPHINE SULFATE 2 MG/ML VIAL. IV PRN ×2 (04:33→09:00)
[2018-12-27 07:19] VITALS: BP 123/64
[2018-12-27] MEDS: PANTOPRAZOLE IV PUSH 40 MG VIAL. IVP SCH (08:55)
--- NOTE | 2018-12-27 09:19 | NUR ---
PARIS following pt. Per Physician request, PARIS made inpatient request to [facility], phone: [phone], fax: [phone]. pharmacy delivery driverCleo at [facility] requested PARIS to only fax face sheet. PARIS provided Physician and RN phone number to pharmacy delivery driver. Pt acceptance and admission pending. Will continue to follow.
--- NOTE | 2018-12-27 10:17 | PDOC ---
PROGRESS NOTES Chief Complaint Chief Complaint High-grade mid-level esophageal stricture failed trial of esophageal dilation dictation 12/25/18 NO known malignancy causing recurrent strictures RECurrent benign esophageal stricture Depression on SSRI and antidepressants History of Present Illness History of Present Illness GI was unfortunately unsuccessful in dilating Mr. chambers: [facility] rejected because of lack of insurance PT difficulty swallowing own secretions Bucket at bedside GOt Teary-eyed when I updated him about [facility] status Plan: attempt [facility] transfer Discussed with social work and GI Keep nothing by mouth, DC all by mouth meds Keep IVF for now Vitals Vitals Vital Signs Date Time Temp Pulse Resp B/P (MAP) Pulse Ox O2 Delivery O2 Flow Rate FiO2 12/27/18 09:00 18 95 Room Air 12/27/18 07:19 98.3 101 123/64 (83) 98.3 12/26/18 16:58 2.0 Physical Exam General: Alert, Oriented X3, Cooperative, No acute distress Heart: Regular rate Lungs: Clear Abdomen: Normal bowel sounds, Soft, No tenderness, No hepatosplenomegaly, No masses Extremities: No clubbing, No cyanosis, No edema, Normal pulses, No tenderness/ swelling Skin: No rashes, No breakdown, No significant lesion Labs LABS Laboratory Tests Test 12/26/18 11:19 White Blood Count 5.9 x10^3/uL (4.0-11.0) Red Blood Count 4.25 x10^6/uL (4.30-5.70) Hemoglobin 11.9 g/dL (13.0-17.5) Hematocrit 35.9 % (39.0-53.0) Mean Corpuscular Volume 85 fL (79-100) Mean Corpuscular Hemoglobin 28 pg (25-35) Mean Corpuscular Hemoglobin Concent 33 g/dL (31-37) Red Cell Distribution Width 21.9 % (11.5-14.5) Platelet Count 301 x10^3/uL (140-400) Sodium Level 141 mmol/L (136-145) Potassium Level 3.6 mmol/L (3.5-5.1) Chloride Level 104 mmol/L (98-107) Carbon Dioxide Level 26 mmol/L (21-32) Anion Gap 11 (6-14) Blood Urea Nitrogen 4 mg/dL (8-26) Creatinine 0.7 mg/dL (0.7-1.3) Estimated GFR (Cockcroft-Gault) 117.1 Glucose Level 94 mg/dL (70-99) Calcium Level 8.7 mg/dL (8.5-10.1) Review of Systems Review of Systems As per history of present illness, the rest of ROS negative Assessment and Plan Assessmemt and Plan Problems Medical Problems: (1) Esophageal stricture Status: Acute Comment Review of Relevant I have reviewed the following items rell (where applicable) has been applied. Labs Laboratory Tests Test 12/26/18 11:19 White Blood Count 5.9 x10^3/uL (4.0-11.0) Red Blood Count 4.25 x10^6/uL (4.30-5.70) Hemoglobin 11.9 g/dL (13.0-17.5) Hematocrit 35.9 % (39.0-53.0) Mean Corpuscular Volume 85 fL (79-100) Mean Corpuscular Hemoglobin 28 pg (25-35) Mean Corpuscular Hemoglobin Concent 33 g/dL (31-37) Red Cell Distribution Width 21.9 % (11.5-14.5) Platelet Count 301 x10^3/uL (140-400) Sodium Level 141 mmol/L (136-145) Potassium Level 3.6 mmol/L (3.5-5.1) Chloride Level 104 mmol/L (98-107) Carbon Dioxide Level 26 mmol/L (21-32) Anion Gap 11 (6-14) Blood Urea Nitrogen 4 mg/dL (8-26) Creatinine 0.7 mg/dL (0.7-1.3) Estimated GFR (Cockcroft-Gault) 117.1 Glucose Level 94 mg/dL (70-99) Calcium Level 8.7 mg/dL (8.5-10.1) Laboratory Tests Test 12/26/18 11:19 White Blood Count 5.9 x10^3/uL (4.0-11.0) Red Blood Count 4.25 x10^6/uL (4.30-5.70) Hemoglobin 11.9 g/dL (13.0-17.5) Hematocrit 35.9 % (39.0-53.0) Mean Corpuscular Volume 85 fL (79-100) Mean Corpuscular Hemoglobin 28 pg (25-35) Mean Corpuscular Hemoglobin Concent 33 g/dL (31-37) Red Cell Distribution Width 21.9 % (11.5-14.5) Platelet Count 301 x10^3/uL (140-400) Sodium Level 141 mmol/L (136-145) Potassium Level 3.6 mmol/L (3.5-5.1) Chloride Level 104 mmol/L (98-107) Carbon Dioxide Level 26 mmol/L (21-32) Anion Gap 11 (6-14) Blood Urea Nitrogen 4 mg/dL (8-26) Creatinine 0.7 mg/dL (0.7-1.3) Estimated GFR (Cockcroft-Gault) 117.1 Glucose Level 94 mg/dL (70-99) Calcium Level 8.7 mg/dL (8.5-10.1) Medications Current Medications Metoclopramide HCl (Reglan Vial) 10 mg 1X ONCE IV Last administered on at 12:44; Start 12/24/18 at 12:45; Stop 12/24/18 at 12:46; Status DC Sodium Chloride 1,000 ml @ 1,000 mls/hr 1X ONCE IV Last administered on at 12:44; Start 12/24/18 at 12:45; Stop 12/24/18 at 13:44; Status DC Barium Sulfate (Liquid E-Z Paque) 355 ml 1X ONCE PO Last administered on at 13:15; Start 12/24/18 at 13:15; Stop 12/24/18 at 13:16; Status DC Ondansetron HCl (Zofran) 4 mg PRN Q8HRS PRN IV NAUSEA/VOMITING; Start 12/24/18 at 13:45; Stop 12/24/18 at 13:59; Status DC Sodium Chloride 1,000 ml @ 125 mls/hr Q8H IV Last administered on 12/25/18at 06 :16; Start 12/24/18 at 14:00; Stop 12/25/18 at 13:59; Status DC Ondansetron HCl (Zofran) 4 mg PRN Q6HRS PRN IV NAUSEA/VOMITING Last administered on 12/27/18at 04:32; Start 12/24/18 at 14:00 Morphine Sulfate (Morphine Sulfate) 2 mg PRN Q2HR PRN IV PAIN Last administered on 12/27/18at 09:00; Start 12/24/18 at 14:00 Pantoprazole Sodium (PROTONIX VIAL for IV PUSH) 40 mg DAILYAC IVP ; Start at 14:30; Stop 12/24/18 at 15:15; Status DC Pantoprazole Sodium (PROTONIX VIAL for IV PUSH) 40 mg BIDAC IVP Last administered on 12/27/18at 08:55; Start 12/24/18 at 16:30 Sertraline HCl (Zoloft) 150 mg DAILY PO ; Start 12/24/18 at 16:30; Stop at 18:01; Status DC Sucralfate (Carafate) 1 gm QIDACHS PO ; Start 12/24/18 at 21:00; Stop 12/26/18 at 18:01; Status DC Pantoprazole Sodium (Protonix) 40 mg BIDAC PO ; Start 12/24/18 at 16:30; Status UNV Gabapentin (Neurontin) 600 mg TID PO ; Start 12/24/18 at 21:00; Stop 12/26/18 at 18:01; Status DC Quetiapine Fumarate (SEROquel) 150 mg HS PO ; Start 12/24/18 at 21:00; Stop at 18:01; Status DC Quetiapine Fumarate (SEROquel) 25 mg PRN DAILY PRN PO ANXIETY / AGITATION; Start 12/24/18 at 15:45; Stop 12/26/18 at 18:01; Status DC Acetaminophen (Tylenol) 650 mg PRN Q6HRS PRN PO PAIN; Start 12/24/18 at 15:45; Stop 12/26/18 at 18:01; Status DC Midazolam HCl (Versed) 2 mg PRN 1X PRN IV PRIOR TO PROCEDURE; Start 12/25/18 at 07:45; Stop 12/26/18 at 07:44; Status DC Fentanyl Citrate (Fentanyl 2ml Vial) 25 mcg PRN Q5MIN PRN IV X 2 DOSES FOR PAIN ; Start 12/25/18 at 07:45; Stop 12/26/18 at 07:44; Status DC Fentanyl Citrate (Fentanyl 2ml Vial) 50 mcg PRN Q5MIN PRN IV X 2 DOSES FOR PAIN ; Start 12/25/18 at 07:45; Stop 12/26/18 at 07:44; Status DC Ringer's Solution 1,000 ml @ 125 mls/hr Q8H IV ; Start 12/25/18 at 07:36; Stop 12/25/18 at 19:35; Status DC Lidocaine HCl (Xylocaine-Mpf 1% 2ml Vial) 2 ml 1X PRN PRN ID IV START; Start at 07:45; Stop 12/26/18 at 07:44; Status DC Propofol 40 ml @ As Directed STK-MED ONCE IV ; Start 12/25/18 at 09:52; Stop at 09:53; Status DC Lidocaine HCl (Lidocaine Pf 2% Vial) 5 ml STK-MED ONCE .ROUTE ; Start 12/25/18 at 09:52; Stop 12/25/18 at 09:53; Status DC Sodium Chloride 1,000 ml @ 100 mls/hr Q10H IV Last administered on 12/27/18at 00:44; Start 12/26/18 at 07:15 Vitals/I & O Vital Sign - Last 24 Hours 12/26/18 12/26/18 12/26/18 12/26/18 12:49 15:00 16:27 16:58 Temp 98.6 98.6 Pulse 80 Resp 19 18 19 B/P (MAP) 135/76 (95) Pulse Ox 100 100 100 O2 Delivery Room Air Room Air Room Air O2 Flow Rate 2.0 12/26/18 12/26/18 12/26/18 12/26/18 19:10 19:13 19:40 22:29 Temp 98.1 98.1 Pulse 66 Resp 16 18 15 B/P (MAP) 127/77 (94) Pulse Ox 100 97 100 O2 Delivery Room Air Room Air Room Air Room Air 12/26/18 12/27/18 12/27/18 12/27/18 23:47 03:58 04:33 05:00 Temp 98.4 98.0 98.4 98.0 Pulse 59 74 Resp 18 18 15 14 B/P (MAP) 142/78 (99) 116/68 (84) Pulse Ox 95 98 98 98 O2 Delivery Room Air Room Air Room Air Room Air 12/27/18 12/27/18 07:19 09:00 Temp 98.3 98.3 Pulse 101 Resp 16 18 B/P (MAP) 123/64 (83) Pulse Ox 95 95 O2 Delivery Room Air Room Air Intake and Output 12/26/18 12/26/18 12/27/18 15:00 23:00 07:00 Intake Total 40 ml 0 ml 1000 ml Output Total 40 ml 500 ml Balance 0 ml -500 ml 1000 ml CAROLINA CHUN MD Dec 27, 2018 10:17
[2018-12-27 10:26] VITALS: BP 130/75
--- NOTE | 2018-12-27 10:55 | NUR ---
Spoke with manufacturing test technician at [facility]. They have declined to take pt stating they are at capacity and informed SW 'to look elsewhere'. Physician notified.
--- NOTE | 2018-12-27 11:28 | PDOC ---
Subjective: Subjective: Cannot swallow saliva. He is understandably frustrated. Objective: Objective: Significant discussion/time spent yesterday w/ Dr. Simmons, Dr. Romero, Dr. Madison's office, our office. Bottom line - declined by [facility] (says pt needs to make a $200,000 payment first) and [facility] (said he should look elsewhere). D/w Dr. Perales. Vital Signs: Vital Signs Date Time Temp Pulse Resp B/P (MAP) Pulse Ox O2 Delivery O2 Flow Rate FiO2 12/27/18 10:26 98.6 80 17 130/75 (93) 94 Room Air 98.6 12/26/18 16:58 2.0 PE: GEN: NAD - emesis basin w/ saliva LUNGS: CTAB HEART: RRR ABD: S/ND/NT NEURO/PSYCH: A & O 3, tearful A/P: Esophageal stenosis -- Out of options - he is to be discharged, hopefully can follow-up w/ [facility] - Dr. Madison's office has his records already. I returned to talk w/ him. He's awaiting the nurse to take his IV out and then plans to leave [facility] to follow-up w/ [facility]. D/w charge nurse on 6S. LOUISE BERNARD Dec 27, 2018 11:28
--- NOTE | 2018-12-27 12:58 | PDOC3 ---
Discharge Summary Visit Information Date of Admission: Dec 24, 2018 Date of Discharge: Dec 27, 2018 Admitting Diagnosis Comment: High-grade mid-level esophageal stricture failed trial of esophageal dilation dictation 12/25/18 NO known malignancy causing recurrent strictures RECurrent benign esophageal stricture Depression on SSRI and antidepressants Final Diagnosis Problems Medical Problems: (1) Esophageal stricture Status: Acute Brief Hospital Course Allergies Allergies Coded Allergies Type Severity Reaction Last Updated Verified No Known Drug Allergies 12/25/18 No Vital Signs Vital Signs Date Time Temp Pulse Resp B/P (MAP) Pulse Ox O2 Delivery O2 Flow Rate FiO2 12/27/18 10:26 98.6 80 17 130/75 (93) 94 Room Air 98.6 12/26/18 16:58 2.0 Lab Results Laboratory Tests Test 12/26/18 11:19 White Blood Count 5.9 x10^3/uL (4.0-11.0) Red Blood Count 4.25 x10^6/uL (4.30-5.70) Hemoglobin 11.9 g/dL (13.0-17.5) Hematocrit 35.9 % (39.0-53.0) Mean Corpuscular Volume 85 fL (79-100) Mean Corpuscular Hemoglobin 28 pg (25-35) Mean Corpuscular Hemoglobin Concent 33 g/dL (31-37) Red Cell Distribution Width 21.9 % (11.5-14.5) Platelet Count 301 x10^3/uL (140-400) Sodium Level 141 mmol/L (136-145) Potassium Level 3.6 mmol/L (3.5-5.1) Chloride Level 104 mmol/L (98-107) Carbon Dioxide Level 26 mmol/L (21-32) Anion Gap 11 (6-14) Blood Urea Nitrogen 4 mg/dL (8-26) Creatinine 0.7 mg/dL (0.7-1.3) Estimated GFR (Cockcroft-Gault) 117.1 Glucose Level 94 mg/dL (70-99) Calcium Level 8.7 mg/dL (8.5-10.1) Brief Hospital Course Mr. Diaz is a 53 old male with history of benign esophageal stricture needing dilatation since 2010 around twice a year. Last dilated at [facility]. He came in because of high grade mid level esophageal stricture, GI attempted to dilate but unfortunately unable to. Needs stent maybe this time, beyond our GI specialty Difficulty swallowing secretions. Attempted transfer to different facilities [facility]. [facility], self-pay, has been rejected GI over [facility] was willing to do it DR Madison. Patient was quite disappointed teary- eyed when I told him these facts. Discharge with instructions to follow-up [facility] today. Discharge Information No Active Prescriptions or Reported Meds CAROLINA CHUN MD Dec 27, 2018 12:58
--- NOTE | 2018-12-27 13:49 | NUR ---
Discharge Note: JESSICA BRADEN[address] [place] [address] Discharge instructions reviewed with patient and a copy given. All questions have been answered and understanding verbalized. The following instructions were given: Patient to follow up at today for procedure (stent placement on the esophageal stricture). Arrangements made by GI service of [facility] and . Discontinued lines and drains: peripheral IV intact, patient tolerated removal, no complications noted. Patient discharged via wheelchair, left the unit at 1220.
== END 2018-12-27 12:10 | disposition short-term general hospital (02) | DRG 392 ==
LOC: ER 11:58 → 6 SOUTH 13:36
PROVIDERS: ADMIT Internal Medicine; ATTEND Internal Medicine
PROC: 0DB58ZX Excision of Esophagus, Via Natural or Artificial Opening Endoscopic, Diagnostic (ICD-10-PCS; principal; 2018-12-25 10:00)
DX: K22.2 Esophageal obstruction (principal); K21.9 Gastro-esophageal reflux disease without esophagitis; F41.9 Anxiety disorder, unspecified; F32.9 Major depressive disorder, single episode, unspecified; I48.91 Unspecified atrial fibrillation; Z79.899 Other long term (current) drug therapy; Z80.0 Family history of malignant neoplasm of digestive organs; Z87.891 Personal history of nicotine dependence
CPT/HCPCS: 36415; 43239; 74220; 80048; 80053; 83690; 85025; 85027; 88305; 96361; 96374; C9113; J2001; J2270; J2405; J2704; J2765; J7030; 99285-25